=== PATIENT | male | born 1980 | race Caucasian/White ===

== ENCOUNTER 2020-02-26 10:10 | Emergency (ER) | payer SELFPAY ==
--- NOTE | 2020-02-26 10:22 | ED.FEMALEGU ---
HPI - Female Genitourinary General Chief complaint: Urogenital-Male Stated complaint: poss uti Time Seen by Provider: 02/26/20 11:08 Source: patient and RN notes reviewed Mode of arrival: ambulatory Limitations: no limitations History of Present Illness HPI Narrative: 39-year-old male presents with concern for dysuria, urinary hesitancy, hematuria, discolored urine. Reports symptoms started last night. Denies fever, abdominal pain, vomiting, flank pain. MD elicited complaint: UTI Related Data Home Medications Medication Instructions Recorded Confirmed buspirone [BuSpar] 30 mg PO BID 02/26/20 02/26/20 clonazepam 0.5 mg PO BID 02/26/20 02/26/20 mirtazapine 15 mg PO DAILY 02/26/20 02/26/20 Allergies Allergy/AdvReac Type Severity Reaction Status Date / Time ibuprofen AdvReac Unknown Verified 02/26/20 10:34 Review of Systems Review of Systems: Narrative: CONSTITUTIONAL: Denies malaise, chills, sweats, or fever. CARDIOVASCULAR: Denies chest pain, palpitations, or edema. RESPIRATORY: Denies cough or dyspnea. GASTROINTESTINAL: Denies abdominal pain, nausea, vomiting. Reports chronic diarrhea GENITOURINARY: Reports dysuria, hesitancy, hematuria. Denies frequency, testicular swelling, pain. MUSCULOSKELETAL: Reports chronic back pain. Denies myalgia. All systems reviewed & are unremarkable except as noted in HPI and below PMFSH Social History Social History Gender identity (if verbalized by the patient): Male Comments At time of signature, agree with nursing past medical, surgical, social and family history. There is no relevant family history pertinent to the presenting complaint Exam Narrative: Exam Narrative: GENERAL: Well-appearing, well-nourished, and in no acute distress. HEAD: Normocephalic. EYES: PERRLA, conjunctivae clear. NECK: Supple. No lymphadenopathy CHEST: Clear to auscultation. No respiratory distress. HEART: Regular rate and rhythm. ABDOMEN: Soft, nontender upon palpation, nondistended, normal active bowel sounds, no palpable or pulsatile masses, no guarding. No CVA tenderness SKIN: Warm, dry, no rash. NEURO: Alert and oriented x3. PSYCH: Normal mood and affect Course Course Emergency Course: Patient is aware of diagnosis, understands and agrees to treatment plan. Anticipatory guidance given. Patient agrees to follow-up as directed and is aware of reasons to seek care at the emergency department. Portions of this record may have been created with voice recognition software Vital Signs Vital signs: Vital Signs Temperature 98.5 F 02/26/20 10:24 Pulse Rate 94 02/26/20 10:24 Respiratory Rate 16 02/26/20 10:24 Blood Pressure 134/87 02/26/20 10:24 Pulse Oximetry 100 02/26/20 10:24 Temperature 98.5 F 02/26/20 10:24 Pulse Rate 94 02/26/20 10:24 Respiratory Rate 16 02/26/20 10:24 Blood Pressure 134/87 02/26/20 10:24 Pulse Oximetry 100 02/26/20 10:24 Reviewed. MDM - Female Genitourinary MDM Narrative Medical decision making narrative: Exam findings and UA show no acute concerns or changes; patient is non-toxic appearing and is in no distress. Patient is appropriate for outpatient treatment and follow-up. Differential Diagnosis Differential diagnosis: Likely urinary tract infection, cystitis and other (Prostateitis) Lab Data Labs: Urine Glucose Trace Reference Range: Negative Urine Bilirubin Negative Reference Range: Negative Urine Ketone Negative Reference Range: Negative Urine Specific [place] 1.030 Reference Range:1.001-1.035 Urine Blood Negative Reference Range: Negative * *
[2020-02-26 10:24] VITALS: BP 134/87; PULSE 94; RESP 16; TEMP 36.9; O2SAT 100
== END 2020-02-26 11:25 | disposition home or self-care (01) ==
PROVIDERS: Emergency Provider Nurse Practitioner
DX: R30.0 Dysuria (principal); R39.11 Hesitancy of micturition; R31.9 Hematuria, unspecified; F41.9 Anxiety disorder, unspecified; F32.9 Major depressive disorder, single episode, unspecified
CPT/HCPCS: 81003; 87086; 99213; G0463